=== PATIENT | female | born 1955 | race Caucasian/White ===

== ENCOUNTER → 2018-10-13 16:52 | Outpatient (CLI) | payer MEDICAID, SELFPAY ==
[2018-10-15 04:10] LABS: HEPATITIS B SURFACE AG Negative (Negative); Hepatitis A AB, Total Negative (Negative); Hepatitis A IgM Antibody Negative (Negative); Hepatitis B Core AB IgM Negative (Negative); Hepatitis B Core Ab Total Negative (Negative); Hepatitis C Ab <0.1 s/co ratio (0.0-0.9)
[2018-10-15 11:32] LABS: Hep B Surface Antibodies Non Reactive (.)
== END ==
PROVIDERS: Family Provider Nurse Practitioner Family; PCP Nurse Practitioner Family; Referring Provider Dermatology Pediatric Dermatology; Visit Provider Dermatology Pediatric Dermatology
DX: L66.8 Other cicatricial alopecia (principal); L64.8 Other androgenic alopecia
CPT/HCPCS: 36415; 86704; 86705; 86706; 86708; 86709; 86803; 87340